=== PATIENT | male | born 1985 | race Caucasian/White ===

== ENCOUNTER 2018-11-23 19:09 | Emergency (ER) | payer OTHER ==
[2018-11-23 19:27] VITALS: BP 112/72; PULSE 69; BMI 26.6
[2018-11-23] MEDS ORDERED: IBUPROFEN 600 MG TABLET (FP) PO ONE ×2 (19:48→19:50)
--- NOTE | 2018-11-23 20:23 | PDOC ---
History of Present Illness - General Chief Complaint: Injury Stated Complaint: FALL Time Seen by Provider: 11/23/18 19:29 - History of Present Illness Initial Comments: 11/23/18 20:16 CHIEF COMPLAINT: pain and swelling to R hand HISTORY OF PRESENT ILLNESS: 32 yo M with no PMH presents to fast track with swelling and pain to R hand s/p fall. Patient states he slipped on something at the grocery store and landed on his right hand. He doesn't remember how it exactly happened but when he stood up he felt pain to his hand and it appeared swollen. The fall was witnessed by his partner, denies trauma to any other part of the body, denies LOC. No recent travel or sick contacts. PAST MEDICAL HISTORY: Denies past medical history FAMILY HISTORY: Denies SOCIAL HISTORY:Denies tobacco, alcohol, illicit drug use. SURGICAL HISTORY: Denies ALLERGIES: No known drug allergies REVIEW OF SYSTEMS General/Constitutional: Denies fever or chills. Denies weakness, weight change. HEENT: Denies change in vision. Denies ear pain or discharge. Denies sore throat. Cardiovascular: Denies chest pain or shortness of breath. Respiratory: Denies cough, wheezing, or hemoptysis. Gastrointestinal: Denies nausea, vomiting, diarrhea or constipation. Denies rectal bleeding. Genitourinary: Denies dysuria, frequency, or change in urination. Musculoskeletal: Pain to R hand. Skin and breasts: Denies rash or easy bruising. Neurologic: Denies headache, vertigo, loss of consciousness, or loss of sensation. Psychiatric: Denies depression or anxiety. PHYSICAL EXAM General Appearance: Well-appearing, appropriately dressed. No apparent distress , no intoxication. HEENT: EOMI, PERRLA, normal ENT inspection, normal voice, TMs normal, pharynx normal. No conjunctival pallor. No photophobia, scleral icterus. Neck: Supple. Trachea midline. No tenderness, rigidity, carotid bruit, stridor , lymphadenopathy, or thyromegaly. Respiratory/Chest: Lungs CTAB. No shortness of breath, chest tenderness, respiratory distress, accessory muscle use. No crackles, rales, rhonchi, stridor , wheezing, dullness Cardiovascular: RRR. S1, S2. No JVD, murmur, bradycardia, tachycardia. Vascular Pulses: Dorsalis-Pedis (R): 2+, Dorsalis-Pedis (L): 2+ Gastrointestinal/Abdominal: Normal bowel sounds. Abdomen soft, non-distended. No tenderness or rebound tenderness. No organomegaly, pulsatile mass, guarding , hernia, hepatomegaly, splenomegaly. Lymphatic: No adenopathy, tenderness. Musculoskeletal/Extremities: Mild swelling to R hand with developing ecchymosis. Neurovascularly intact, pulses 2+. FROM of all other extremities, normal capillary refill. Pelvis Stable. No CVA tenderness. No tenderness to extremities, pedal edema, swelling, erythema or deformity. Integumentary: Appropriate color, dry, warm. No cyanosis, erythema, jaundice or rash Neurologic: equity research associate II-XII intact. Fully oriented, alert. Appropriate mood/affect. Motor strength 5/5. No appreciable EOM palsy, facial droop or sensory deficit. Past History - Past Medical History Allergies/Adverse Reactions: Allergies Allergy/AdvReac Type Severity Reaction Status Date / Time No Known Allergies Allergy Verified 11/23/18 19:27 Home Medications: Ambulatory Orders Ibuprofen 600 mg PO QID #30 tablet 11/23/18 Cardiac Disorders: No (vasovagal) COPD: No - Suicide/Smoking/Psychosocial Hx Smoking History: Current every day smoker Number of Cigarettes Smoked Daily: 4 Information on smoking cessation initiated: No Hx Alcohol Use: Yes (occaional) Drug/Substance Use Hx: (marijuana) *Physical Exam - Vital Signs Last Vital Signs Temp Pulse Resp BP Pulse Ox 69 16 112/72 100 11/23/18 19:24 11/23/18 19:24 11/23/18 19:24 11/23/18 19:24 ED Treatment Course - RADIOLOGY Radiology Studies Ordered: Category Date Time Status WRIST W/HAND-RIGHT* [RAD] Stat Radiology 11/23/18 19:48 Taken - Medications Given in the ED: ED Medications Discontinued Medications Generic Name Dose Route Start Last Admin Trade Name Freq PRN Reason Stop Dose Admin Ibuprofen 600 mg 11/23/18 19:48 11/23/18 19:55 Motrin - PO 11/23/18 19:49 600 mg ONCE ONE Administration Medical Decision Making - Medical Decision Making 11/23/18 20:23 32 yo M with no PMH presents to fast track with swelling and pain to R hand s/p fall. -xray -ibuprofen fracture to base of 5th metacarpal seen on x-ray, ulnar gutter splint applied. Advised patient to take medication as prescribed and follow up with ortho this week. Advised patient of signs and symptoms for return to ED. Patient verbalized understanding and agrees to plan. *DC/Admit/Observation/Transfer Diagnosis at time of Disposition: Metacarpal bone fracture Qualifiers: Encounter type: initial encounter Metacarpal bone: fifth Fracture type: closed Metacarpal location: base Fracture alignment: nondisplaced Laterality: right Qualified Code(s): S62.346A - Nondisplaced fracture of base of fifth metacarpal bone, right hand, initial encounter for closed fracture - Discharge Dispostion Disposition: HOME Condition at time of disposition: Stable Decision to Admit order: No - Prescriptions Prescriptions: Ibuprofen 600 mg PO QID #30 tablet - Referrals Referrals: Brandon Mendes MD [Staff Physician] - Leoncio Farrell DO [Staff Physician] - - Patient Instructions Printed Discharge Instructions: DI for a Hand Fracture Additional Instructions: Please take medication as prescribed. As discussed, please follow up with an orthopedics within the next 2 days for further management of your fracture. If you experience any loss of sensation to your extremities, any loss of bowel or bladder function, any swelling or increased pain to your leg, please return to the ER. - Post Discharge Activity
== END 2018-11-23 20:51 | disposition home or self-care (01) ==
LOC: JERFT 19:09
PROC: 2W3CX1Z Immobilization of Right Lower Arm using Splint (ICD-10-PCS; principal; 2018-11-23)
DX: S62.346A Nondisplaced fracture of base of fifth metacarpal bone, right hand, initial encounter for closed fracture (principal); W01.0XXA Fall on same level from slipping, tripping and stumbling without subsequent striking against object, initial encounter; Y93.89 Activity, other specified; Y92.512 Supermarket, store or market as the place of occurrence of the external cause; Y99.8 Other external cause status
CPT/HCPCS: 29126; 73110-TC-RT-FY; 73130-TC-RT-FY; 99281-25

== ENCOUNTER 2018-11-26 06:22 | Day surgery (SDC) | payer OTHER ==
[2018-11-25 15:43] VITALS: BMI 25.8
[2018-11-26] MEDS ORDERED: BUPIVACAINE HCL/PF 0.5% (5MG/ML) 10 ML VIAL ONE (07:18)
[2018-11-26] MEDS ORDERED: SUCCINYLCHOLINE CHLORIDE 200 MG/10 ML SYRINGE ONE ×2 (07:19→08:01)
[2018-11-26] MEDS ORDERED: PROPOFOL 20 ML ONE ×5 (07:19→12:18)
[2018-11-26] MEDS ORDERED: ROCURONIUM BROMIDE 50 MG/5 ML VIAL ONE (07:19)
[2018-11-26] MEDS ORDERED: MIDAZOLAM HCL 2 MG/2 ML SINGLE DOSE VIAL ONE ×2 (07:21→07:41)
[2018-11-26] MEDS ORDERED: diazePAM 5 MG TABLET ONE (07:58)
[2018-11-26] MEDS ORDERED: diazePAM 5 MG TABLET PO ONE (07:59)
[2018-11-26 13:35] VITALS: TEMP 98.3
[2018-11-26 14:47] VITALS: BP 110/60; PULSE 64
[2018-11-26] MEDS ORDERED: oxyCODONE HCL 5 MG TABLET PO PRN ×2 (14:54)
[2018-11-26] MEDS ORDERED: ONDANSETRON 4 MG/2 ML VIAL IVPUSH PRN (14:54)
[2018-11-26] MEDS ORDERED: LACTATED RINGERS SOLUTION 1,000 ML IV SCH (15:00)
--- NOTE | 2018-12-07 20:24 | OP ---
DATE OF OPERATION: 11/26/2018 PREOPERATIVE DIAGNOSES: Right 4th and 5th carpometacarpal fracture dislocations with 4th and 5th metacarpal fractures and hamate fracture. POSTOPERATIVE DIAGNOSES: Right 4th and 5th carpometacarpal fracture dislocations with 4th and 5th metacarpal fractures and hamate fracture. OPERATIVE PROCEDURE: 1. Open reduction and internal fixation of hamate fracture. 2. Open reduction and internal fixation of multiple carpometacarpal dislocations. 3. Open reduction and internal fixation of right 4th metacarpal. 4. Open reduction and internal fixation of right 5th metacarpal. SURGEON: Sukumar White MD BEATING MACHINE OPERATOR: AMANDEEP Orona COMPLICATIONS: None. ESTIMATED BLOOD LOSS: Minimal. INDICATIONS FOR PROCEDURE: The patient is a 32-year-old male with the above finding, indicated for operative treatment. Risks, benefits, and alternatives discussed with patient at length, proper informed consent was obtained. PROCEDURE: After proper identification of patient and correct operative site, patient was brought to operating room, placed supine on the operating table. All bony prominences were well padded. Intravenous antibiotics given. Timeout procedure was performed. Anesthetic was performed by the anesthesiologist, adequate for procedure. Right upper extremity was prepped and draped in the usual sterile fashion. A well-padded tourniquet was placed over the sterile prep. Under live fluoroscopy, attempt at closed reduction was performed and was not successful in achieving satisfactory reduction. Therefore, a longitudinal incision was made over the dorsal aspect of the hand in line with the 4th and 5th metacarpals at the carpometacarpal joint. This incision was made after exsanguinating the arm with an Esmarch bandage and inflating the tourniquet to 250 mmHg. The incision was taken sharply through the skin with blunt and sharp dissection in subcutaneous tissues, carefully dissecting neurovascular structures. Fascia over the 4th and 5th carpometacarpal joints was developed and the periosteum was elevated, and capsule was elevated off of these joints and bones. Soft tissue is cleared from all the fractures sites and the articular surface, and the hamate fracture, carpometacarpal joints and 4th and 5th metacarpals were reduced with manual techniques. Once this was accomplished, 0.054 K wires were placed across the 4th, 5th, and 3rd metacarpals distal to the fracture sites. Two K wires were placed to perform stable internal fixation of the fractures and dislocations. This provided secure stable fixation of the hamate fracture as well as the carpometacarpal joints and 4th and 5th metacarpal fractures, and therefore, no further fixation was needed. Full range of motion was achieved at both the MP joint as well as the wrist and hand. Radiographs were taken and confirmed proper reduction in multiple planes. The wound was irrigated. The capsule and periosteum was repaired using 4-0 Vicryl sutures, and the skin was repaired using a 5-0 nylon suture. Sterile dressings and a splint were placed. Pins were cut short and bent outside of the skin prior to placing a splint and dressings. Patient was reversed from anesthesia and brought to the recovery room in stable condition. He tolerated the procedure well. Sathya Toledo, the photographer assistant, was interval throughout the procedure. The procedure could not have been performed without a skilled operative photographer assistant. SUKUMAR WHITE M.D. [id number]
== END 2018-11-26 14:10 | disposition home or self-care (01) ==
LOC: FASU 06:22
PROVIDERS: ATTEND Orthopaedic Surgery Hand Surgery
PROC: 0PSP04Z Reposition Right Metacarpal with Internal Fixation Device, Open Approach (ICD-10-PCS; 2018-11-26)
PROC: 0PSP04Z Reposition Right Metacarpal with Internal Fixation Device, Open Approach (ICD-10-PCS; 2018-11-26)
PROC: 0RSS04Z Reposition Right Carpometacarpal Joint with Internal Fixation Device, Open Approach (ICD-10-PCS; 2018-11-26)
PROC: 0RSS04Z Reposition Right Carpometacarpal Joint with Internal Fixation Device, Open Approach (ICD-10-PCS; 2018-11-26)
PROC: 0PSM04Z Reposition Right Carpal with Internal Fixation Device, Open Approach (ICD-10-PCS; principal; 2018-11-26 11:45)
DX: S62.141A Displaced fracture of body of hamate [unciform] bone, right wrist, initial encounter for closed fracture (principal); S62.324A Displaced fracture of shaft of fourth metacarpal bone, right hand, initial encounter for closed fracture; S62.326A Displaced fracture of shaft of fifth metacarpal bone, right hand, initial encounter for closed fracture; S63.054A Dislocation of other carpometacarpal joint of right hand, initial encounter; X58.XXXA Exposure to other specified factors, initial encounter; Y93.9 Activity, unspecified; Y92.9 Unspecified place or not applicable
CPT/HCPCS: 73140-TC-RT-FY; 94760

== ENCOUNTER 2019-01-21 09:19 | Emergency (ER) | payer OTHER ==
[2019-01-21 09:26] VITALS: BP 134/88; PULSE 75; TEMP 98; BMI 26.6
[2019-01-21] MEDS ORDERED: IBUPROFEN 600 MG TABLET (FP) PO ONE ×2 (10:05→10:08)
[2019-01-21] MEDS ORDERED: DIPHTH,PERTUSS(ACELL),TET 0.5 ML DISP.SYRIN IM ONE ×2 (10:05→10:08)
[2019-01-21] MEDS ORDERED: CEFAZOLIN 1 GM/D5W 1 GM/50 ML BAG IVPB ONE (10:51)
[2019-01-21] MEDS ORDERED: CEFAZOLIN 1 GM/D5W 1 GM/50 ML BAG ONE (11:20)
[2019-01-21] MEDS ORDERED: LIDOCAINE HCL 1%, 10 MG/ML (20ML VIAL) ONE (11:59)
--- NOTE | 2019-01-21 13:15 | PDOC ---
History of Present Illness - General Chief Complaint: Injury Stated Complaint: LF HAND INJURY Time Seen by Provider: 01/21/19 10:02 History Source: Patient Exam Limitations: No Limitations Past History - Past Medical History Allergies/Adverse Reactions: Allergies Allergy/AdvReac Type Severity Reaction Status Date / Time No Known Allergies Allergy Verified 01/21/19 09:26 Home Medications: Ambulatory Orders Ibuprofen 600 mg PO QID #30 tablet 11/23/18 Cephalexin [Keflex] 500 mg PO BID #13 capsule 01/21/19 Oxycodone HCl/Acetaminophen [Percocet 5-325 mg Tablet] 1 tab PO Q6H PRN #20 tablet MDD 4 01/21/19 Anemia: No Asthma: No Cancer: No Cardiac Disorders: No CVA: No COPD: No CHF: No Dementia: No Diabetes: No GI Disorders: No Disorders: No HTN: No Hypercholesterolemia: No Liver Disease: No Seizures: No Thyroid Disease: No Other medical history: vasal bagal - Surgical History Abdominal Surgery: No Appendectomy: No Cardiac Surgery: No Cholecystectomy: No Lung Surgery: No Neurologic Surgery: No Orthopedic Surgery: No - Psycho Social/Smoking Cessation Hx Smoking History: Never smoked Have you smoked in the past 12 months: No Number of Cigarettes Smoked Daily: 4 Information on smoking cessation initiated: No Hx Alcohol Use: No Drug/Substance Use Hx: No Substance Use Type: Marijuana Hx Substance Use Treatment: No *Physical Exam - Vital Signs Last Vital Signs Temp Pulse Resp BP Pulse Ox 98 F 75 17 134/88 99 01/21/19 09:22 01/21/19 09:22 01/21/19 09:22 01/21/19 09:22 01/21/19 09:22 - Physical Exam General Appearance: No: Apparent Distress Extremity: positive: Normal Capillary Refill, Other (wide irregular laceration along distal end of L middle finger (along the palmar aspect of hand), nail and nailbed spared, able to flex at DIP and PIP joint, no other evidence of trauma noted) Neurologic: positive: Alert Procedures - Laceration/Wound Repair Left Finger 3rd digit Wound Length: 5.0 to 7.5 cm Wound Explored: clean Wound's Depth, Shape: irregular Irrigated w/ Saline: Yes Betadine Prep: Yes Anesthesia: 1% Lidocaine Wound Debrided: moderate Wound Repaired With: Sutures Suture Size/Type: 3:0, nylon Number of Sutures: 10 Deep Layer Suture Size/Type: 3:0, other (polysorb) Number of Deep Layer Sutures: 4 Sterile Dressing Applied: Yes Splint Applied: Yes ED Treatment Course - RADIOLOGY Radiology Studies Ordered: Category Date Time Status FINGER(S) LEFT [RAD] Stat Radiology 01/21/19 10:04 Taken - Medications Given in the ED: ED Medications Discontinued Medications Generic Name Dose Route Start Last Admin Trade Name Freq PRN Reason Stop Dose Admin Diphtheria/Tetanus/Acell Pertussis 0.5 ml 01/21/19 10:05 01/21/19 10:17 Boostrix - IM 01/21/19 10:06 0.5 ml .ONCE ONE Administration Cefazolin Sodium 1 gm in 50 mls @ 100 mls/hr 01/21/19 10:51 01/21/19 11:24 Ancef 1 Gm Premixed Ivpb - IVPB 01/21/19 11:20 100 mls/hr ONCE ONE Administration Ibuprofen 600 mg 01/21/19 10:05 01/21/19 10:17 Motrin - PO 01/21/19 10:06 600 mg ONCE ONE Administration Medical Decision Making - Medical Decision Making 33 y/o M with no sig pmh presents with L middle finger injury from today. Got finger caught in garage door. Is unsure of last tetanus. Denies fever, other complaints Xray shows tuft fracture No hand or plastics available for consult D/W C, plastics/hand, Dr. Liu, who stated no need for transfer No concern for tendon injury based on exam Patient given tetanus and Ancef Lac repaired - see procedure note (received assistance from TRE Martinez) Stable for dc 01/21/19 13:13 Discharge - Discharge Information Problems reviewed: Yes Clinical Impression/Diagnosis: Finger laceration Qualifiers: Encounter type: initial encounter Finger: middle finger Damage to nail status: without damage Foreign body presence: without foreign body Laterality: left Qualified Code(s): S61.213A - Laceration without foreign body of left middle finger without damage to nail, initial encounter Condition: Stable Disposition: HOME - Admission No - Additional Discharge Information Prescriptions: Cephalexin [Keflex] 500 mg PO BID #13 capsule Oxycodone HCl/Acetaminophen [Percocet 5-325 mg Tablet] 1 tab PO Q6H PRN #20 tablet MDD 4 PRN Reason: Severe Pain Prescription Drug Monitoring Program (I-STOP) results: I-STOP not reviewed - Follow up/Referral Referrals: Josue Lewis MD, MD [Primary Care Provider] - Farshad Richey MD [Staff Physician] - 2 Days - Patient Discharge Instructions Patient Printed Discharge Instructions: DI for Laceration Repair -- Finger Additional Instructions: Thank you for choosing [facility]. It was a pleasure taking care of you. You may take Motrin 600 mg every 6 hours by mouth as needed for mild to moderate pain. Take Motrin with food. For severe pain, you may take Percocet. This medication can make you constipated for which you may take over the counter Senna tablets as needed. This medication can also make you drowsy so please be cautious with driving or performing heavy physical work. Take the antibiotics as prescribed as well You were referred to hand doctor. Please follow-up in 2 days Return to the Emergency Department if your symptoms worsen or persist, you have fever, pustular drainage, redness, streaking or other concerning symptoms. - Post Discharge Activity
== END 2019-01-21 13:34 | disposition home or self-care (01) ==
LOC: JERFT 09:19
PROC: 3E03329 Introduction of Other Anti-infective into Peripheral Vein, Percutaneous Approach (ICD-10-PCS; principal; 2019-01-21)
PROC: 3E0234Z Introduction of Serum, Toxoid and Vaccine into Muscle, Percutaneous Approach (ICD-10-PCS; 2019-01-21)
PROC: 0HQGXZZ Repair Left Hand Skin, External Approach (ICD-10-PCS; 2019-01-21)
DX: S61.213A Laceration without foreign body of left middle finger without damage to nail, initial encounter (principal); W22.8XXA Striking against or struck by other objects, initial encounter; Y93.89 Activity, other specified; Y92.89 Other specified places as the place of occurrence of the external cause
CPT/HCPCS: 12002-25; 73140-TC-LT-FY; 90471; 90715; 96365; 99283-25

== ENCOUNTER 2020-12-18 11:02 | Inpatient (IN) | payer OTHER ==
[2020-12-18] MEDS ORDERED: morphine CARPU-JECT 4 MG/1 ML DISP.SYRIN IVPUSH ONE (11:33)
[2020-12-18] MEDS ORDERED: ONDANSETRON 4 MG/2 ML VIAL IVPUSH ONE (11:33)
[2020-12-18] MEDS ORDERED: SODIUM CHLORIDE 1,000 ML IV STA (11:33)
[2020-12-18] MEDS ORDERED: morphine SULFATE 4 MG/ML VIAL ONE (11:48)
[2020-12-18] MEDS ORDERED: ONDANSETRON 4 MG/2 ML VIAL ONE (11:48)
[2020-12-18 12:15] LABS: BASO % 0.3 % (0-2.0); EOS % 0.9 % (0-4.5); HEMATOCRIT 43.5 % (35.4-49); HEMOGLOBIN 14.9 GM/dL (11.7-16.9); MCH 30.9 pg (25.7-33.7); MCHC 34.2 g/dl (32.0-35.9); MEAN CELL VOLUME 90.3 fl (80-96); MEAN PLT VOLUME 8.7 fl (7.5-11.1); MONO % 7.4 % (3.8-10.2); NEUT % 73.4 % (42.8-82.8); PLATELET COUNT 221 10^3/uL (134-434); RBC 4.81 M/mm3 (4.00-5.60); RDW 13.1 % (11.9-15.9); WHITE BLOOD COUNT 11.9 K/mm3 (4.0-10.0)
[2020-12-18 12:19] LABS: URINE APPEARANCE CLEAR; URINE BILIRUBIN NEGATIVE (NEGATIVE); URINE COLOR YELLOW; URINE GLUCOSE (UA) NEGATIVE (NEGATIVE); URINE KETONE TRACE (NEGATIVE); URINE LEUK ESTERASE NEGATIVE (NEGATIVE); URINE NITRITE NEGATIVE (NEGATIVE); URINE PROTEIN NEGATIVE (NEGATIVE)
[2020-12-18 12:36] LABS: CALCIUM 8.9 mg/dL (8.5-10.1)
[2020-12-18 12:37] LABS: BLOOD UREA NITROGEN 12.1 mg/dL (7-18)
[2020-12-18 12:41] LABS: BILIRUBIN,TOTAL 0.4 mg/dL (0.2-1); TOT PROT 7.4 g/dl (6.4-8.2)
[2020-12-18] MEDS ORDERED: PIPERACILLIN/TAZOB 4.5 GM 4.5 GM in DEXTROSE 5%-WATER 100 ML IVPB ONE (13:23)
[2020-12-18] MEDS ORDERED: PIPERACILLIN/TAZOB 4.5 GM 4.5 GM/100 ML BAG IVPB ONE (13:31)
[2020-12-18] MEDS: SODIUM CHLORIDE 1,000 ML IV SCH ×2 (13:46→17:14)
[2020-12-18 15:57] VITALS: BMI 27.7
[2020-12-18] MEDS: morphine SULFATE 4 MG/ML VIAL IVPUSH PRN ×2 (17:54→22:02)
[2020-12-18] MEDS ORDERED: ONDANSETRON 4 MG/2 ML VIAL IVPUSH PRN (18:43)
[2020-12-18] MEDS ORDERED: DEXTROSE 5%-0.45% SALINE 1,000 ML IV SCH (18:45)
[2020-12-19] MEDS ORDERED: DEXTROSE 5%-WATER - 50 ML IVPB ONE ×2 (01:16→09:27)
[2020-12-19] MEDS ORDERED: PIPERACILLIN/TAZOBACTAM 3.375 GM VIAL IVPB ONE ×2 (01:16→09:27)
[2020-12-19] MEDS: PIPERACILLIN/TAZOB 3.375 GM 3.375 GM in DEXTROSE 5%-WATER - 50 ML IVPB SCH ×2 (01:23→09:41)
[2020-12-19] MEDS ORDERED: PIPERACILLIN/TAZOB 3.375 GM 3.375 GM in DEXTROSE 5%-WATER - 50 ML IVPB SCH (02:00)
[2020-12-19] MEDS: morphine SULFATE 4 MG/ML VIAL IVPUSH PRN (06:04)
[2020-12-19] MEDS ORDERED: PROPOFOL 20 ML ONE ×2 (10:40→10:48)
[2020-12-19] MEDS ORDERED: ROCURONIUM BROMIDE 50 MG/5 ML SYRINGE ONE (10:40)
[2020-12-19] MEDS ORDERED: fentaNYL CITRATE 250 MCG/5 ML VIAL ONE (10:40)
[2020-12-19] MEDS ORDERED: MIDAZOLAM HCL 2 MG/2 ML SINGLE DOSE VIAL ONE (10:40)
[2020-12-19] MEDS ORDERED: BUPIVACAINE HCL/PF 0.5% (5MG/ML) 10 ML VIAL ONE (10:47)
[2020-12-19] MEDS ORDERED: DEXAMETHASONE SOD PHOSPHATE 4 MG/1 ML VIAL ONE (10:56)
[2020-12-19] MEDS ORDERED: BUPIVACAINE HCL/PF 0.5% (5MG/ML) 10 ML VIAL IJ ONE ×2 (10:59)
[2020-12-19] MEDS ORDERED: GLYCOPYRROLATE 0.2 MG/1 ML VIAL ONE ×2 (11:18→11:30)
[2020-12-19] MEDS ORDERED: NEOSTIGMINE METHYLSULFATE 0.5 MG/ML - 10 ML MDV ONE (11:19)
[2020-12-19] MEDS ORDERED: LACTATED RINGERS SOLUTION 1,000 ML IV SCH ×2 (11:45→12:36)
[2020-12-19] MEDS ORDERED: ONDANSETRON 4 MG/2 ML VIAL IVPUSH PRN ×2 (11:45→12:36)
[2020-12-19] MEDS ORDERED: ACETAMINOPHEN INJECTION 100 ML IVPB ONE (12:42)
[2020-12-19] MEDS ORDERED: ACETAMINOPHEN 1000 MG/100 ML VIAL (NON FORMULARY) IVPB ONE ×2 (12:45→12:51)
[2020-12-19] MEDS ORDERED: oxyCODONE HCL 5 MG TABLET PO ONE (13:56)
[2020-12-19 16:47] VITALS: BP 140/54; PULSE 61; TEMP 98.4
== END 2020-12-19 17:11 | disposition home or self-care (01) | DRG 225 ==
LOC: JER 11:02 → JERBED 14:39 → J6S 15:34
PROVIDERS: ADMIT Internal Medicine; ATTEND Internal Medicine
PROC: 0DTJ4ZZ Resection of Appendix, Percutaneous Endoscopic Approach (ICD-10-PCS; principal; 2020-12-19 10:30)
DX: K35.80 Unspecified acute appendicitis (principal); D72.829 Elevated white blood cell count, unspecified; R19.7 Diarrhea, unspecified; R10.31 Right lower quadrant pain
CPT/HCPCS: 36415; 74177-TC; 80053; 81003; 83690; 85025; 86850; 86900; 86901; 87086; 88304-TC; 93005; 93010; 94010; 94760; 99285-25; C9803; J0131; Q9967; U0003; U0005

== ENCOUNTER 2020-12-20 14:41 | Emergency (ER) | payer OTHER ==
[2020-12-20 14:55] VITALS: BMI 27.4
[2020-12-20] MEDS ORDERED: KETOROLAC TROMETHAMINE 30 MG/1 ML VIAL IM ONE (15:32)
[2020-12-20] MEDS ORDERED: KETOROLAC TROMETHAMINE 30 MG/1 ML VIAL ONE (15:49)
[2020-12-20] MEDS ORDERED: morphine CARPU-JECT 4 MG/1 ML DISP.SYRIN IVPUSH ONE (16:29)
[2020-12-20 17:20] VITALS: BP 113/80; PULSE 59; TEMP 98.6
== END 2020-12-20 17:23 | disposition home or self-care (01) ==
LOC: JER 14:41
PROC: 3E0233Z Introduction of Anti-inflammatory into Muscle, Percutaneous Approach (ICD-10-PCS; principal; 2020-12-20)
PROC: 3E033NZ Introduction of Analgesics, Hypnotics, Sedatives into Peripheral Vein, Percutaneous Approach (ICD-10-PCS; 2020-12-20)
DX: K59.03 Drug induced constipation (principal); G89.18 Other acute postprocedural pain
CPT/HCPCS: 96372; 96374; 99284-25

== ENCOUNTER 2021-02-07 13:36 | Emergency (ER) | payer OTHER ==
[2021-02-07 14:08] VITALS: BMI 27.4
[2021-02-07] MEDS ORDERED: ACETAMINOPHEN 1000 MG/100 ML VIAL IVPB ONE (17:25)
[2021-02-07 17:28] LABS: INR 1.28 (0.83-1.09)
[2021-02-07 17:31] LABS: ACTIVATED PTT 34.5 SECONDS (25.2-36.5)
[2021-02-07 17:32] LABS: BASO % 0.2 % (0-2.0); HEMATOCRIT 44.7 % (35.4-49); HEMOGLOBIN 15.2 GM/dL (11.7-16.9); LYMPH % 8.9 % (8-40); MCH 30.4 pg (25.7-33.7); MEAN CELL VOLUME 89.3 fl (80-96); MONO % 12.6 % (3.8-10.2); NEUT % 78.3 % (42.8-82.8); RBC 5.01 M/mm3 (4.00-5.60); RDW 13.3 % (11.9-15.9); WHITE BLOOD COUNT 7.6 K/mm3 (4.0-10.0)
[2021-02-07] MEDS ORDERED: ACETAMINOPHEN INJECTION 100 ML IVPB ONE (17:33)
[2021-02-07 17:49] LABS: ALBUMIN 4.2 g/dl (3.4-5.0); BLOOD UREA NITROGEN 9.2 mg/dL (7-18); CALCIUM 9.4 mg/dL (8.5-10.1)
[2021-02-07 17:53] LABS: CREATININE 0.8 mg/dL (0.55-1.3)
[2021-02-07 17:54] LABS: BILIRUBIN,TOTAL 0.3 mg/dL (0.2-1); TOT PROT 7.8 g/dl (6.4-8.2)
[2021-02-07 17:59] LABS: MEAN PLT VOLUME 8.7 fl (7.5-11.1); PLATELET COUNT 196 10^3/uL (134-434)
[2021-02-07 18:00] LABS: PLATELET ESTIMATE ADEQUATE
[2021-02-07 19:32] VITALS: BP 116/75; PULSE 79; TEMP 98.1
== END 2021-02-07 19:31 | disposition home or self-care (01) ==
LOC: JER 13:36
PROC: 3E0333Z Introduction of Anti-inflammatory into Peripheral Vein, Percutaneous Approach (ICD-10-PCS; principal; 2021-02-07)
DX: R05.1 Acute cough (principal); R09.81 Nasal congestion; K22.6 Gastro-esophageal laceration-hemorrhage syndrome; Z11.52 Encounter for screening for COVID-19
CPT/HCPCS: 36415; 71275-TC; 80053; 85025; 85379; 85610; 85730; 87804; 99284-25; C9803; J0131; Q9967; U0003; U0005

== ENCOUNTER 2021-09-06 18:07 | Emergency (ER) | payer OTHER ==
[2021-09-06 18:14] VITALS: BP 119/74; PULSE 64; TEMP 97; BMI 27.4
[2021-09-06] MEDS ORDERED: KETOROLAC TROMETHAMINE 30 MG/1 ML VIAL IM ONE (18:51)
[2021-09-06] MEDS ORDERED: KETOROLAC TROMETHAMINE 30 MG/1 ML VIAL ONE (19:01)
== END 2021-09-06 19:04 | disposition home or self-care (01) ==
LOC: JERFT 18:07
PROC: 3E0233Z Introduction of Anti-inflammatory into Muscle, Percutaneous Approach (ICD-10-PCS; principal; 2021-09-06)
DX: S20.212A Contusion of left front wall of thorax, initial encounter (principal); R07.82 Intercostal pain; W01.0XXA Fall on same level from slipping, tripping and stumbling without subsequent striking against object, initial encounter
CPT/HCPCS: 71101-TC-LT-FY; 99284-25

== ENCOUNTER 2023-01-16 16:47 | Emergency (ER) | payer OTHER ==
[2023-01-16 16:53] VITALS: BP 126/72; PULSE 80; RESP 18; TEMP 98.3; BMI 30.7
[2023-01-16] MEDS ORDERED: KETOROLAC TROMETHAMINE 30 MG/1 ML VIAL IM ONE (18:12)
[2023-01-16] MEDS ORDERED: METHOCARBAMOL 750 MG TABLET PO ONE (18:12)
[2023-01-16] MEDS ORDERED: ACETAMINOPHEN 500 MG TABLET (FP) PO ONE (18:12)
[2023-01-16] MEDS ORDERED: ACETAMINOPHEN 500 MG TABLET (FP) ONE (18:21)
[2023-01-16] MEDS ORDERED: METHOCARBAMOL 500 MG TABLET ONE (18:21)
[2023-01-16] MEDS ORDERED: KETOROLAC TROMETHAMINE 30 MG/1 ML VIAL ONE (18:21)
== END 2023-01-16 19:32 | disposition home or self-care (01) ==
LOC: JERFT 16:47
PROC: 3E0233Z Introduction of Anti-inflammatory into Muscle, Percutaneous Approach (ICD-10-PCS; principal; 2023-01-16)
DX: M54.50 Low back pain, unspecified (principal); M25.531 Pain in right wrist; M25.532 Pain in left wrist; S66.911A Strain of unspecified muscle, fascia and tendon at wrist and hand level, right hand, initial encounter; S66.912A Strain of unspecified muscle, fascia and tendon at wrist and hand level, left hand, initial encounter; W18.39XA Other fall on same level, initial encounter
CPT/HCPCS: 72100-TC-FY; 73110-TC-LT-FY; 73110-TC-RT-FY; 99284-25